=== PATIENT | female | born 1995 | race Caucasian/White ===

== ENCOUNTER 2017-11-12 19:02 | Emergency (ER) | payer OTHER ==
[~2017-11-12] VITALS: Ht 160 cm; Wt 56.7 kg
[2017-11-12] MEDS ORDERED: PRISTIQ100 MG (19:52)
[2017-11-12] MEDS ORDERED: NEURONTIN600 MG (19:53)
[2017-11-12] MEDS ORDERED: REXULTI4 MG (19:53)
[2017-11-12] MEDS ORDERED: CORTISPORIN OTI10 M2 OTIC (20:04)
[2017-11-12 20:12] VITALS: BP 101/65
== END 2017-11-12 20:08 | disposition home or self-care (01) ==
LOC: M.ERS 19:02
DX: H60.91 Unspecified otitis externa, right ear (principal); Z88.0 Allergy status to penicillin

== ENCOUNTER 2018-03-19 19:58 | Emergency (ER) | payer OTHER ==
[~2018-03-19] VITALS: Ht 160 cm; Wt 56.7 kg
[~2018-03-19 19:58] MED LIST: CORTISPORIN OTI10 M2 OTIC; NEURONTIN600 MG; PRISTIQ100 MG; REXULTI4 MG
[2018-03-19 20:40] LABS: ABSOLUTE BASOPHILS 0.1 thou/uL (0.0-0.2); ABSOLUTE EOSINOPHILS 0.1 thou/uL (0.0-0.7); ABSOLUTE LYMPHOCYTES 3.4 thou/uL (0.8-5.3); ABSOLUTE MONOCYTES 0.8 thou/uL (0.0-1.2); ABSOLUTE NEUTROPHILS 5.2 thou/uL (1.6-8.1); BASOPHILS 0.9 %; EOSINOPHILS 0.6 %; HEMATOCRIT 38.6 % (37.0-47.0); HEMOGLOBIN 13.4 gm/dL (12.0-15.0); LYMPHOCYTES 35.9 %; MCH 30.8 pg (26.0-34.0); MCHC 34.8 g/dL (28.0-37.0); MCV 88.7 fL (80.0-100.0); NUCLEATED RBCS 0 /100WBC; PLATELET COUNT* 222 thou/uL (150-400); POLYS 54.6 %; RBC 4.35 mil/uL (4.20-5.00); RDW-CV 12.5 % (10.5-14.5); WBC 9.5 thou/uL (4.0-11.0)
[2018-03-19 20:47] LABS: CALCIUM 9.4 mg/dL (8.5-10.1); CREATININE 0.9 mg/dL (0.6-1.3); POTASSIUM 3.7 mmol/L (3.5-5.1)
[2018-03-19 20:52] LABS: ALBUMIN 4.2 g/dL (3.4-5.0); TOTAL BILIRUBIN 0.7 mg/dL (<0.1-1.0); TOTAL PROTEIN 7.1 g/dL (6.4-8.2)
[2018-03-19 20:57] LABS: URINE BILIRUBIN NEGATIVE (Negative); URINE BLOOD NEGATIVE (Negative); URINE CLARITY CLEAR; URINE COLOR YELLOW; URINE GLUCOSE-RANDOM NEGATIVE (Negative); URINE KETONES NEGATIVE (Negative); URINE LEUKOCYTES-REFLEX NEGATIVE (Negative); URINE NITRITE-REFLEX NEGATIVE (Negative); URINE PROTEIN NEGATIVE (Negative); URINE SPECIFIC GRAVITY >= 1.030 (1.005-1.030); URINE UROBILINOGEN 0.2 E.U./dl (0.2-1.0)
[2018-03-19] MEDS ORDERED: MIRALAX17 GM PO (22:06)
[2018-03-19] MEDS ORDERED: BENTYL 20 MG TA20 M1 PO (22:06)
[2018-03-19 22:20] VITALS: BP 127/65
== END 2018-03-19 22:21 | disposition home or self-care (01) ==
LOC: M.ERS 19:58
PROVIDERS: Nurse Practitioner
DX: K59.00 Constipation, unspecified (principal); Z91.040 Latex allergy status; Z88.0 Allergy status to penicillin